=== PATIENT | female | born 1985 | race Caucasian/White ===

== ENCOUNTER 2017-03-25 09:10 | Emergency (ER) | payer BC, OTHER ==
[~2017-03-25] VITALS: Ht 157.5 cm; Wt 98.0 kg
[2017-03-25 09:26] VITALS: Ht 157.5 cm; Wt 98.0 kg
[2017-03-25] MEDS ORDERED: IBUPROFEN 800 MG TAB PO ONE (10:00)
--- NOTE | 2017-03-25 10:31 | RADRPT ---
PROCEDURE: XR Chest. CLINICAL INDICATION: chest pain TECHNIQUE: Single frontal view of the chest was obtained COMPARISON: None FINDINGS: The heart and mediastinum are within normal limits. The lungs are clear. There is no pleural effusion or pneumothorax. RPTAT: AA IMPRESSION: No acute disease. .Tom Latif MD, Date Time Electronically viewed and signed by .Tom Latif MD, on 03/25/2017 10:31 .S/
[2017-03-25] MEDS ORDERED: IBUP-1542 PO (10:51)
--- NOTE | 2017-03-25 10:52 | ERD ---
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 She was sent by her clinic. She has chest pressure and left-sided arm pain. She has bilateral hand pain as well which started yesterday. Her symptoms have been constant. She tried Dominic aspirin yesterday that was given to her by her . She denies fever cough. She has never had this before. She has had no recent travel. She has no leg swelling. She said that she is not currently . She goes to the [facility] for her primary care. ROS All systems reviewed and are negative except as per history of present illness. Medications Home Meds Active Scripts Ibuprofen* (Motrin*) 600 Mg Tab, 600 MG PO Q8, #30 TAB Prov:CYNTHIA DUNN MD 03/25/17 Allergies Allergies: Coded Allergies: No Known Allergies (Verified Allergy, 07/24/12) PMhx/Soc Medical and Surgical Hx: pt denies Surgical Hx History of Surgery: Yes (C/S X1) Anesthesia Reaction: No Hx Neurological Disorder: No Hx Respiratory Disorders: No Hx Cardiac Disorders: No Hx Psychiatric Problems: No Hx Miscellaneous Medical Probl: No Hx Alcohol Use: No Hx Substance Use: No Hx Tobacco Use: No FmHx Family History: No coronary disease, No diabetes Physical Exam Vitals Vital Signs Date Time Temp Pulse Resp B/P Pulse Ox O2 Delivery O2 Flow Rate FiO2 03/25/17 09:26 97.8 82 19 137/86 98 Physical Exam Const: No acute distress Head: Atraumatic Eyes: Normal Conjunctiva ENT: Normal External Ears, Nose and Mouth. Neck: Full range of motion..~ No meningismus. Resp: Clear to auscultation bilaterally Cardio: Regular rate and rhythm, no murmurs, chest wall pain with palpation Abd: Soft, non tender, non distended. Normal bowel sounds Skin: No petechiae or rashes Back: No midline or flank tenderness Ext: No cyanosis, or edema Neur: Awake and alert Psych: Normal Mood and Affect Results 24 hrs Current Medications Medications (Trade) Dose Ordered Sig/Roro Route PRN Reason Start Time Stop Time Status Last Admin Dose Admin Ibuprofen (Motrin) 800 mg ONCE ONCE PO 03/25/17 10:00 03/25/17 10:01 DC 03/25/17 10:00 Procedures/MDM EKG read by me: Rate/Rhythm: Regular rate and rhythm at a rate of 73 Intervals: Normal Impression: No evidence of ischemia or arrhythmia Chest x-ray negative per radiology. Urine test is negative. Patient is a 31-year-old female who presents with chest pressure. The patient has a normal EKG and normal chest x-ray. Urine test is negative. Her blood pressure was not elevated like it was in the clinic. At this point I believe the patient is stable for outpatient management. I doubt acute coronary syndrome, pneumonia, pneumothorax, pulmonary embolism, or aortic dissection. The patient will need close follow-up with the primary doctor within 24-48 hours and can return if symptoms worsen. The patient can use ibuprofen as needed for pain. Departure Diagnosis: Primary Impression: Chest pain Chest pain type: unspecified Qualified Code: R07.9 - Chest pain, unspecified type Condition: Fair Patient Instructions: Chest Pain, Uncertain Cause Referrals: Your doctor Additional Instructions: Call your primary care doctor TOMORROW for an appointment during the next 1-2 days.See the doctor sooner or return here if your condition worsens before your appointment time. CYNTHIA DUNN MD Mar 25, 2017 10:52
== END 2017-03-25 11:28 | disposition home or self-care (01) ==
LOC: FTE 09:10
DX: R07.89 Other chest pain (principal)
CPT/HCPCS: 71010; 93005; Z7610